=== PATIENT | male | born 1940 | race Caucasian/White ===

== ENCOUNTER 2017-07-26 10:37 | Emergency (ER) | payer OTHER ==
--- NOTE | 2017-07-26 11:58 | EDPHY ---
H & P Stated Complaint: Fever, dry cough x 5 days--from [place] x 7 days Time Seen by Provider: 07/26/17 11:57 HPI/ROS: HPI: This is a 77-year-old male who presents with Chief Complaint: Fever, dry cough x 5 days--from [place] x 7 days Location: Chest Quality: Dry cough Duration: 5 days Signs and Symptoms: no shortness of breath at rest, no shortness of breath on exertion, + nonproductive cough, no chest pain, no palpitations, no lower extremity edema, no wheezing, no orthopnea, no paroxysmal nocturnal dyspnea, + fever, no injury/trauma, no hemoptysis, no carpal pedal spasms Timing: Intermittent, worse at night Severity: Moderate Context: Patient reports that he lives in [facility] and is here visiting his daughter in [facility] presents with 3 day history of low- grade fevers with T-max of a 101 accompanied by a dry cough for the last 5 days. Patient has a history of pneumonia and empyema on the left lung. He reports that he has had numerous CT chest outpatient that show scar tissue. Patient reports that he has no prior lung disease. Denies any shortness of breath/chest pain/difficulty eating/body aches. Modifying Factors: None Comment: ROS: see HPI Constitutional: + fever, no chills, no weight loss Eyes: No blurred vision Respiratory: No shortness of breath, + cough Cardiovascular: No chest pain, no palpitations, no lower extremity edema Gastrointestinal: No nausea, no vomiting, no diarrhea Genitourinary: No dysuria Extremities: No myalgias Neurologic: No weakness, no numbness Skin: No rashes Hematologic: No bruising, no bleeding MEDICAL/SURGICAL/SOCIAL HISTORY: pmh- hyperlipidemia, hypertension, benign prostatic hypertrophy psh- empyema, appendectomy Social history: Originally from [place]. CONSTITUTIONAL: Extremely pleasant nontoxic appearing adult white male, awake and alert, no obvious distress HEENT: Atraumatic and normocephalic, PERRL, EOMI. Nares patent; no rhinorrhea; no nasal mucosal edema. Tympanic membranes clear. Oropharynx clear, no exudate and moist pink mucosa. Airway patent. No lymphadenopathy. No meningismus. No JVD. Cardiovascular: Normal S1/S2, regular rate, regular rhythm, without murmur rub or gallop. PULMONARY/CHEST: Symmetrical and nontender. Clear to auscultation bilaterally. Good air movement. No accessory muscle usage. ABDOMEN: Soft, nondistended, nontender, no rebound, no guarding, no peritoneal signs, no masses or organomegaly. No CVAT. EXTREMITIES: 2/2 pulses, strength 5/5, no deformities, no clubbing, no cyanosis or edema. NEUROLOGICAL: no focal neuro deficits. GCS 15. SKIN: Warm and dry, no erythema. no rash. Good capillary refill. Source: Patient, Family (), RN/MD Exam Limitations: No limitations - Medical/Surgical History Hx Asthma: No Hx Chronic Respiratory Disease: No Hx Diabetes: No Hx Cardiac Disease: No Hx Renal Disease: No Hx Cirrhosis: No Hx Alcoholism: No Hx HIV/AIDS: No Hx Splenectomy or Spleen Trauma: No Other PMH: pmh- hld, htn, bph,. psh- empyema, appy - Social History Smoking Status: Former smoker Constitutional: Initial Vital Signs Temperature (C) 37.5 C 07/26/17 10:42 Heart Rate 110 H 07/26/17 10:42 Respiratory Rate 16 07/26/17 10:42 Blood Pressure 137/84 H 07/26/17 10:42 O2 Sat (%) 92 07/26/17 10:42 O2 Delivery Mode Room Air Allergies/Adverse Reactions: No Known Allergies Allergy (Unverified 12/11/14 09:26) Home Medications: Medication Instructions Recorded Avodart 0.5 MG (RX) 12/11/14 Flomax 0.4 MG (RX) 12/11/14 Lipitor 10 mg (RX) 12/11/14 Zestril 10 mg (RX) 12/11/14 Benzonatate [Tessalon Pearles (RX)] 100 mg PO Q4 PRN #12 cap 07/26/17 LORazepam 07/26/17 levOFLOXACIN [levAQUIN (*)] 500 mg PO DAILY #7 tab 07/26/17 Medical Decision Making - Diagnostics Imaging Results: Imaging Impressions Chest X-Ray 07/26/17 12:06 Impression: 1. Left lower lobe pneumonia. 2. Dextroscoliosis. 3. Recommend follow-up chest x-rays until left lower lobe pneumonia is clear. Findings and recommendations discussed with Emergency Department physician, Sally Moreno PA-C at 1301 hours on July 26, 2017. Final report concurs with initial preliminary interpretation. ED Course/Re-evaluation: Curb 65 score=1; low risk for mortality Long discussion with patient to obtain labs and he and his have politely declined. Do not believe that patient has a pulmonary embolism given the fever but we did discuss the possibility. Patient prefers to obtain chest x-ray versus CT chest imaging. Chest xray read shows left lower lobe pneumonia. He is headed back to [place] in 2 days and reports he does not"feel that bad." Will treated with fluoroquinolone; Levaquin given in the ER and prescription for same Vital signs reviewed upon arrival in stable. No signs of hypoxia. This patient was seen under the supervision of my secondary supervising physician. I evaluated care for this patient independently. Differential Diagnosis: Adult fever including but not limited to viral syndromes including influenza, bronchitis, pneumonia and sepsis. - Data Points Medications Given: Discontinued Medications Benzonatate (Tessalon Pearles) 200 mg PO EDNOW ONE Stop: 07/26/17 12:54 Last Admin: 07/26/17 13:10 Dose: 200 mg Levofloxacin (Levaquin) 750 mg PO EDNOW ONE PRN Reason: Protocol Stop: 07/26/17 12:54 Last Admin: 07/26/17 13:10 Dose: 750 mg Departure - Departure Disposition: Home, Routine, Self-Care Clinical Impression: Community acquired pneumonia Qualifiers: Laterality: unspecified laterality Qualified Code(s): J18.9 - Pneumonia, unspecified organism Condition: Good Instructions: Community Acquired Pneumonia (ED) Additional Instructions: Return to the ER immediately if you experience fevers/chills, shortness of breath, abdominal pain, inability to tolerate oral intake, or any other symptoms that concern you. Referrals: PCP Not In,Dictionary [Medical Doctor] - As per Instructions Prescriptions: Benzonatate [Tessalon Pearles (RX)] 100 mg PO Q4 PRN #12 cap PRN Reason: Cough, Moderate levOFLOXACIN [levAQUIN (*)] 500 mg PO DAILY #7 tab
[2017-07-26] MEDS ORDERED: BENZONATATE 100 MG CAP PO ONE (12:53)
[2017-07-26 13:19] VITALS: BP 131/94
== END 2017-07-26 13:21 | disposition home or self-care (01) ==
DX: J18.9 Pneumonia, unspecified organism (principal); I10 Essential (primary) hypertension; Z87.891 Personal history of nicotine dependence